=== PATIENT | male | born 1970 | race Caucasian/White ===

== ENCOUNTER 2020-06-24 12:44 | Outpatient (CLI) | payer OTHER | END 2020-06-24 23:59 | disposition home or self-care (01) | LOC: CVU 12:44 | PROVIDERS: ATTEND Internal Medicine Hematology & Oncology | DX: C49.11 Malignant neoplasm of connective and soft tissue of right upper limb, including shoulder (principal); D47.1 Chronic myeloproliferative disease; I08.1 Rheumatic disorders of both mitral and tricuspid valves | CPT/HCPCS: 93306 ==